=== PATIENT | female | born 1985 | race Caucasian/White ===

== ENCOUNTER → 2016-09-06 | Outpatient (CLI) | payer OTHER ==
[2016-09-06 18:13] LABS: BASO # 0.1 K/mm3 (0.0-0.2); BASO % 1.8 % (0.0-1.0); EOS % 0.7 % (0.0-3.0); LARGE UNSTAINED CELL # 0.1 K/mm3 (0.0-0.4); LARGE UNSTAINED CELL % 1.9 % (0.0-4.0); LYMPH # 1.8 K/mm3 (1.5-4.5); MEAN CORPUSCULAR HEMOGLOBIN 30.7 pg (27.0-33.0); MEAN CORPUSCULAR VOLUME 90.4 fl (80.0-96.0); MONO # 0.3 K/mm3 (0.0-0.8); MONO % 4.1 % (0.0-5.0); NEUTROPHILS # 4.3 K/mm3 (1.8-7.7); NEUTROPHILS % 65.5 % (36.0-66.0); PLATELET COUNT, AUTOMATED 288 k/mm3 (150-450); RED CELL DISTRIBUTION WIDTH 12.5 % (11.5-14.5)
[2016-09-07 09:36] LABS: HBsAg Prenatal NEGATIVE (NEGATIVE)
[2016-09-07 11:53] LABS: WHITE BLOOD COUNT 6.6 K/mm3 (4.0-10.0)
[2016-09-07 14:16] LABS: HIV SCRN NEGATIVE (NEGATIVE); HIV SCRN1 NEGATIVE (NEGATIVE)
[2016-09-07 14:18] LABS: CONTROL LINE INT CTR LINE PRESENT
== END ==
LOC: M LRY 09:56
PROVIDERS: ATTEND Advanced Practice Midwife
DX: Z34.81 Encounter for supervision of other normal pregnancy, first trimester (principal)

== ENCOUNTER → 2016-11-10 | Outpatient (CLI) | payer OTHER | LOC: M LRY 09:45 | PROVIDERS: ATTEND Specialist | DX: Z34.80 Encounter for supervision of other normal pregnancy, unspecified trimester (principal) ==

== ENCOUNTER → 2016-11-22 | Outpatient (CLI) | payer OTHER ==
--- NOTE | 2016-11-22 14:29 | REP ---
Clinical: Anatomical evaluation. Comparison: None . Findings: Examination demonstrates a single live intrauterine in variable presentation. motion is identified by technologist. Placenta is noted right-sided towards the fundus and grade zero without evidence for placenta previa or abruption. Amniotic fluid volume is normal. Cervix measures 4.4 cm in length and appears closed. No evidence for nuchal cord. Gestational age by current measurements 19 weeks 1 day with SYDNIE 04/17/2017 . FHR equals 139 beats per minute. BPD 4.5 cm 19 weeks 4 days HC 16.6 cm 19 weeks 2 days AC 14.0 cm 19 weeks 2 days FL 3.0 cm 19 weeks 2 days HL 2.9 cm 19 weeks 3 days HC/AC ratio 1.19 Estimated weight 287 grams ( 51st percentile). Anatomical assessment demonstrates normal structures including cranium, choroid plexus, cavum, cerebellum/posterior fossa, facial features, lungs, four-chamber heart/ventricular outflow tracts, diaphragm, stomach, cord insertion/three-vessel cord, bladder, spine, and extremities. Bilateral renal pelviectasis measuring up to 5.6 mm. Impression: Single live intrauterine in variable presentation. Bilateral renal pelviectasis noted. Remainder of the anatomical assessment is complete and normal. Signed by Fritz Martini MD 11/22/2016 02:20 P
== END ==
LOC: M SMT 12:41
PROVIDERS: ATTEND Specialist
DX: Z34.82 Encounter for supervision of other normal pregnancy, second trimester (principal)

== ENCOUNTER → 2017-01-05 | Outpatient (CLI) | payer OTHER ==
[2017-01-05 13:44] LABS: MEAN CORPUSCULAR HEMOGLOBIN 32.2 pg (27.0-33.0); MEAN CORPUSCULAR HGB CONC 34.8 g/dl (32.0-36.5); MEAN CORPUSCULAR VOLUME 92.5 fl (80.0-96.0); RED CELL DISTRIBUTION WIDTH 13.3 % (11.5-14.5); WHITE BLOOD COUNT 7.4 K/mm3 (4.0-10.0)
== END ==
LOC: M SMT 09:06
PROVIDERS: ATTEND Advanced Practice Midwife
DX: Z34.82 Encounter for supervision of other normal pregnancy, second trimester (principal)

== ENCOUNTER → 2017-03-17 | Outpatient (REF) | payer OTHER ==
[~2017-03-17] MED LIST: COLA100C5 PO; IBUP-1022 PO; IBUP-1114 PO; OXYC1TAB23 PO; PRE-TAB3 PO
== END ==
LOC: M LAB REF 12:46
PROVIDERS: ATTEND Advanced Practice Midwife
DX: Z34.83 Encounter for supervision of other normal pregnancy, third trimester (principal)

== ENCOUNTER 2017-03-23 14:34 | Outpatient (CLI) | payer OTHER ==
[~2017-03-23] VITALS: Ht 162.6 cm; Wt 70.0 kg
[2017-03-23] MEDS ORDERED: PRE-TAB3 PO (14:45)
[2017-03-23 14:50] VITALS: BP 118/63
[2017-03-23 15:07] VITALS: BP 113/61
[2017-03-23] MEDS ORDERED: TERBUTALINE SULFATE 1 MG/ML VIAL (J3105) SC ONE (18:45)
== END 2017-03-23 23:45 | disposition home or self-care (01) ==
LOC: M LDO 14:34
PROVIDERS: ATTEND Obstetrics & Gynecology
DX: O32.1XX0 Maternal care for breech presentation, not applicable or unspecified (principal); Z3A.37 37 weeks gestation of pregnancy

== ENCOUNTER 2017-04-05 05:27 | Inpatient (IN) | payer OTHER ==
[~2017-04-05] VITALS: Ht 162.6 cm; Wt 70.0 kg
[2017-04-05] VITALS (9 sets, daily range): BP systolic 103–120; BP diastolic 53–102
[~2017-04-05 05:27] MED LIST changes: -COLA100C5 PO; -IBUP-1022 PO; -IBUP-1114 PO; -OXYC1TAB23 PO
[2017-04-05] MEDS ORDERED: BICITRA 30ML SOLN UDC PO ONE (05:45)
[2017-04-05] MEDS ORDERED: LR 1,000 ML IV SCH ×3 (05:45→09:30)
[2017-04-05] MEDS ORDERED: LR 1,000 ML IV ONE (05:45)
[2017-04-05 06:26] LABS: MEAN CORPUSCULAR HEMOGLOBIN 32.7 pg (27.0-33.0); MEAN CORPUSCULAR VOLUME 90.8 fl (80.0-96.0); RED CELL DISTRIBUTION WIDTH 13.3 % (11.5-14.5); WHITE BLOOD COUNT 6.7 K/mm3 (4.0-10.0)
[2017-04-05] MEDS ORDERED: NALBUPHINE HCL 10 MG/ML AMP (J2300) IV PRN ×2 (07:57→09:30)
[2017-04-05] MEDS ORDERED: METOCLOPRAMIDE INJ 10MG/2ML VIAL (J2765) IV PRN (07:57)
[2017-04-05] MEDS ORDERED: ONDANSETRON 4MG/2ML VIAL (J2405) IV PRN ×3 (07:57→09:30)
[2017-04-05] MEDS ORDERED: NALOXONE INJ 0.4 MG/1 ML VIAL (J2310) IV PRN ×2 (07:57)
[2017-04-05] MEDS ORDERED: KETOROLAC 60 MG/2 ML VIAL (J1885) As Ordered ONE (08:18)
[2017-04-05] MEDS ORDERED: PHENYLephrine HCL 500 MCG/5 ML (100MCG/ML) SYRINGE (J2370) As Ordered ONE (08:18)
[2017-04-05] MEDS ORDERED: MORPHINE PRES-FREE INJ 10 MG/10 ML VIAL (J2274) As Ordered ONE (08:18)
[2017-04-05] MEDS ORDERED: OXYTOCIN INJ 10 UNITS/ML VIAL (J2590) As Ordered ONE (08:18)
[2017-04-05] MEDS ORDERED: ONDANSETRON 4MG/2ML VIAL (J2405) As Ordered ONE (08:18)
[2017-04-05] MEDS ORDERED: fentaNYL 100 MCG/2 ML INJECTION (J3010) As Ordered ONE (08:22)
[2017-04-05] MEDS ORDERED: MEASLES,MUMPS,RUBELLA VACCINE INJ (MMR-II) (90707) SC SCH (08:45)
[2017-04-05] MEDS ORDERED: RHOGAM 300 MCG (1500 IU) INJ (J2790) IM SCH (08:45)
[2017-04-05] MEDS ORDERED: OXYTOCIN DRIP 30 UNITS in APPROPRIATE DILUENT 1 EA IV ONE (08:45)
[2017-04-05] MEDS ORDERED: PERCOCET 5MG/325MG TAB PO PRN ×2 (08:45)
[2017-04-05] MEDS ORDERED: MOM 30ML SUSPENSION UDC PO PRN (08:45)
[2017-04-05] MEDS ORDERED: DOCUSATE SODIUM 100 MG CAP PO PRN (08:45)
[2017-04-05] MEDS ORDERED: OXYTOCIN DRIP 30 UNITS in APPROPRIATE DILUENT 1 EA IV SCH (09:04)
[2017-04-05] MEDS ORDERED: fentaNYL 100 MCG/2 ML INJECTION (J3010) IV PRN (09:30)
--- NOTE | 2017-04-05 09:37 | HPE ---
DATE OF ADMISSION: 04/05/2017 CHIEF COMPLAINT: Primary low transverse section. HISTORY OF PRESENT ILLNESS: The patient is a 32-year-old, (G) 2, para (P) 1-0-0-1, at 39 weeks and 0 days gestation with an estimated date of confinement of 04/12/2017 by last menstrual period of 07/06/2016. She presents for primary low transverse section secondary to breech presentation of fetus. She denies any rupture of membranes, bleeding or discharge. She feels the baby move. LABS: Blood type is O positive. She is GBS positive. Rubella immune. HIV negative. Last Pap smear was 02/11/2016 and normal. She is gonorrhea and Chlamydia negative. Hepatitis B antigen negative. Hepatitis C nonreactive. VDRL nonreactive. Afp4 negative. Diabetes screen was 60. Her blood pressures in the office have been ranging from 110 to 132 systolic over 60 to 72 diastolic. Total weight gain is 32 pounds. OB ULTRASOUND: Bedside ultrasound confirms adia breech presentation. PAST OB HISTORY: In 2012, she delivered a male at 40 weeks 5 days gestation, normal spontaneous vaginal delivery, weighing 7 pounds 14 ounces. PAST MEDICAL HISTORY: She has factor V Leiden. PAST SURGICAL HISTORY: None. ALLERGIES: None. SOCIAL HISTORY: She is . Denies tobacco, alcohol and drug use. PHYSICAL EXAMINATION: Temperature 97.8. Pulse 88. Respiratory rate 18. Blood pressure 115/70. Abdomen: Gravid. Nontender. Monitor: heart rate is in the 130s with moderate variability. Accelerations. No decelerations. Category 1 tracing. ASSESSMENT AND PLAN: Intrauterine (IUP) at 39 weeks 0 days gestation presenting for primary low transverse section secondary to breech presentation of fetus. Anticipate primary low transverse section. My preceptor for this patient encounter was Dr. Estevan Alexis. The preceptor was physically present in the building during the encounter and was fully available. As needed, all aspects of the patient interview, examination, medical decision making process, and medical care plan development were reviewed and approved by the preceptor. The preceptor is aware and concurs with the plan as stated in the body of this note and will attest to such by his/her cosignature.
[2017-04-05] MEDS: PRENATAL VITAMINS CHEWABLE TABLET PO SCH (11:58)
[2017-04-05] MEDS: KETOROLAC 30 MG/ML VIAL (J1885) IV SCH ×2 (14:36→20:31)
[2017-04-06] MEDS: KETOROLAC 30 MG/ML VIAL (J1885) IV SCH ×2 (01:58→07:59)
[2017-04-06 02:00] VITALS: BP 104/66
[2017-04-06 05:52] VITALS: BP 103/63
[2017-04-06 07:01] LABS: MEAN CORPUSCULAR HEMOGLOBIN 31.9 pg (27.0-33.0); MEAN CORPUSCULAR HGB CONC 35.4 g/dl (32.0-36.5); RED CELL DISTRIBUTION WIDTH 13.8 % (11.5-14.5); WHITE BLOOD COUNT 7.2 K/mm3 (4.0-10.0)
[2017-04-06] MEDS: PRENATAL VITAMINS CHEWABLE TABLET PO SCH (07:59)
[2017-04-06 10:15] VITALS: BP 116/65
[2017-04-06 15:22] VITALS: BP 110/56
[2017-04-06] MEDS: IBUPROFEN 800 MG TAB PO SCH (15:24)
[2017-04-07] MEDS: IBUPROFEN 800 MG TAB PO SCH ×2 (00:54→08:39)
[2017-04-07 06:00] VITALS: BP 125/58
[2017-04-07] MEDS ORDERED: OXYC1TAB23 PO ×2 (07:42→13:15)
[2017-04-07] MEDS ORDERED: COLA100C5 PO (07:43)
[2017-04-07] MEDS ORDERED: IBUP-1022 PO (07:43)
[2017-04-07] MEDS: PRENATAL VITAMINS CHEWABLE TABLET PO SCH (08:38)
[2017-04-07] MEDS ORDERED: IBUP-1114 PO (13:15)
--- NOTE | 2017-04-08 13:41 | DSES ---
DATE OF ADMISSION: 04/05/2017 DATE OF DISCHARGE: 04/07/2017 HISTORY: A 32-year-old G2, P1 female, 39 weeks gestation, presents for primary section due to breech presentation. Medical history is significant for factor V Leiden deficiency. HOSPITAL COURSE: On 02/03/2017 the patient underwent primary low transverse section without complication. She had adequate return of bladder and bowel function. Her postoperative hemoglobin was 8.8 grams/deciliter. She was deemed stable for discharge on postoperative day #2. ADMISSION DIAGNOSIS: , term, breech presentation. DISCHARGE DIAGNOSIS: , term, breech presentation. PROCEDURES: Primary transverse section, bilateral tubal ligation. Instructions were reviewed. Patient will followup in the office in 2 weeks.
== END 2017-04-07 15:25 | disposition home or self-care (01) | DRG 540 ==
LOC: M LDI 05:27 → M OBS 10:48
PROVIDERS: ADMIT Obstetrics & Gynecology; ATTEND Obstetrics & Gynecology
PROC: 10D00Z1 Extraction of Products of Conception, Low, Open Approach (ICD-10-PCS; principal; 2017-04-05 07:30)
DX: O32.1XX0 Maternal care for breech presentation, not applicable or unspecified (principal); Z37.0 Single live birth; Z3A.39 39 weeks gestation of pregnancy

== ENCOUNTER → 2017-11-03 | Outpatient (REF) | payer OTHER ==
[2017-11-08 00:06] LABS: HPV HYBRID CAPTURE II Negative (Negative)
== END ==
LOC: M LAB REF 13:37
DX: Z01.419 Encounter for gynecological examination (general) (routine) without abnormal findings (principal); Z11.51 Encounter for screening for human papillomavirus (HPV)
CPT/HCPCS: G0123

== ENCOUNTER → 2018-12-18 | Outpatient (REF) | payer OTHER ==
[~2018-12-18] MED LIST changes: +COLA100C5 PO; +IBUP-1022 PO; +IBUP-1114 PO; +OXYC1TAB23 PO
== END ==
LOC: M LAB REF 17:52
PROVIDERS: ATTEND Advanced Practice Midwife
DX: Z12.4 Encounter for screening for malignant neoplasm of cervix (principal)

== ENCOUNTER → 2020-11-30 | Outpatient (REF) | payer OTHER | LOC: M SFHCWAGY 09:42 | PROVIDERS: ATTEND Advanced Practice Midwife | DX: Z12.4 Encounter for screening for malignant neoplasm of cervix (principal); R87.610 Atypical squamous cells of undetermined significance on cytologic smear of cervix (ASC-US); Z80.3 Family history of malignant neoplasm of breast ==

== ENCOUNTER → 2021-01-01 | Outpatient (CLI) | payer OTHER ==
--- NOTE | 2021-01-04 08:59 | REP ---
INDICATION: Z13.31 HIGH RISK PATIENT BREAST CA,FM HX BREAST CA. COMPARISON: There are no prior bilateral screening examinations for comparison. The latest prior bilateral examination for comparison is a bilateral diagnostic mammogram with no FFDM images for comparison. TECHNIQUE: Digital screening mammography was carried out bilaterally in the CC and MLO projections using both 2D and 3D modalities. By history the patient has no complaints of a palpable breast abnormality or other significant breast complaints. FINDINGS: The breasts are unchanged in size and shape. Once again, dense heterogenous fibroglandular elements are seen bilaterally to such a degree that the sensitivity of the mammogram and detecting cancers decreased. There are no masses. There is no internal architectural distortion. Benign calcifications are seen on the right. In the left breast retroareolar region there is a grouping of calcifications which vary somewhat in size, shape, and radiographic density. No other suspicious features are seen in either breast. The Volpara volumetric breast density pattern is D. IMPRESSION: BIRADS/ACR category 0. Left breast calcifications as described above for which diagnostic digital magnified spot compression views are recommended in the CC and MLO projections. This patient's Tyrer-Cuzick lifetime breast cancer risk assessment score is 30.4 %. This mammogram was interpreted with the aid of an FDA-approved computer-aided detection system. The patient states she had a clinical breast exam in November 2020. The patient letter being requested is M0. RECOMMENDATION: As above <Electronically signed by Ben Lew > 01/04/21 0827
== END ==
LOC: M WHC 12:48
PROVIDERS: ATTEND Advanced Practice Midwife
DX: Z12.31 Encounter for screening mammogram for malignant neoplasm of breast (principal); Z80.3 Family history of malignant neoplasm of breast; R92.1 Mammographic calcification found on diagnostic imaging of breast

== ENCOUNTER → 2021-01-15 | Outpatient (CLI) | payer OTHER ==
--- NOTE | 2021-01-15 15:58 | REP ---
INDICATION: LEFT BREAST CALCS. COMPARISON: Multiple the latest screening examination of 01/01/2021 TECHNIQUE: Diagnostic digital magnified spot compression views of the left breast were obtained over the region of interest seen on the prior screening exam 01/01/2021. Cc and MLO views were obtained FINDINGS: The retro areolar cluster of calcifications seen on the screening exam are now seen to vary in size, shape, and radiographic density. Other calcifications are also seen, however, those calcifications are punctate and are more spread out well these suspicious calcifications are clustered within 1 sq cm breast tissue. These calcifications were not imaged on any prior mammogram I have the review. IMPRESSION: BIRADS/ACR category 4 left mammogram. Biopsy of the aforementioned calcifications recommended. The patient letter being requested is M4. RECOMMENDATION: As above <Electronically signed by Ben Lew > 01/15/21 0912
== END ==
LOC: M WHC 15:05
PROVIDERS: ATTEND Advanced Practice Midwife
DX: Z12.31 Encounter for screening mammogram for malignant neoplasm of breast (principal); Z80.3 Family history of malignant neoplasm of breast; R92.1 Mammographic calcification found on diagnostic imaging of breast

== ENCOUNTER → 2021-02-04 | Outpatient (CLI) | payer OTHER ==
[2021-02-04 15:37] VITALS: BP 116/78
--- NOTE | 2021-02-04 15:55 | REP ---
INDICATION: R92.8 ABN MAMMO LT BREAST,STEREOTACTIC BIOPSY. COMPARISON: 01/15/2021. TECHNIQUE: Specimen radiograph is performed. FINDINGS: Multiple tiny calcifications are seen in the specimens. IMPRESSION: Multiple tiny calcifications are visualized in the obtained biopsy specimens. RECOMMENDATION: Clinical follow-up. <Electronically signed by Ivan Etienne > 02/04/21 155
--- NOTE | 2021-02-04 16:22 | REP ---
INDICATION: R92.8 ABN MAMMO LT BREAST,POST STEREOTACTIC BIOPSY. COMPARISON: 01/15/2021. TECHNIQUE: ML and CC views left breast performed following stereotactic biopsy of retroareolar microcalcifications. FINDINGS: Many of the calcifications are no longer present. Biopsy marking clip is present, but appears to have migrated approximately 1.7 cm posteromedial to the location of the calcifications. There are few residual calcifications present at the site of the biopsied cluster. IMPRESSION: Successful stereotactic biopsy of clustered microcalcifications in the left retroareolar region. Biopsy clip appears to have migrated approximately 1.7 cm posteromedial to the biopsied cluster of microcalcifications. RECOMMENDATION: Clinical follow-up. <Electronically signed by Ivan Etienne > 02/04/21 0464
--- NOTE | 2021-02-04 17:04 | REP ---
INDICATION: R92.8 ABN MAMMO LT BREAST,STEREOTACTIC BIOPSY. COMPARISON: None. TECHNIQUE: This procedure is performed by Madeleine Gonzalez [facility], under the direct supervision of Dr. Etienne. The risks and benefits of the procedure were explained to the patient and informed consent was obtained both verbally and written. Directly prior to the start of the procedure, a formal timeout was done in the procedure room. The lateral medial approach was utilized on the prone table. The left breast microcalcification's were localized using mammographic guidance. The skin was prepped and draped in a sterile fashion. Two ml of buffered lidocaine was used as a local anesthetic. FINDINGS: A 12 gauge vacuum assisted mammotome biopsy device was inserted and advanced into the breast lesion and 6 core biopsy samples were obtained. A marker clip was placed at the biopsy site. The patient tolerated the procedure well and there were no immediate complications. After the appropriate amount of monitored convalescence the patient was discharged from the department. IMPRESSION: Stereotactic guided left breast biopsy with micro clip placement. <Electronically signed by Madeleine Gonzalez > 02/04/21 1633 <Electronically signed by Ivan Eitenne > 02/04/21 1700
== END ==
LOC: M WHCPRO 06:55
PROVIDERS: ATTEND Surgery
DX: N60.12 Diffuse cystic mastopathy of left breast (principal); N60.92 Unspecified benign mammary dysplasia of left breast

== ENCOUNTER → 2021-06-25 | Outpatient (CLI) | payer OTHER ==
[~2021-06-25] MED LIST changes: +PROHANCE 279.3MG/ML 15ML VIAL As Ordered ONE
--- NOTE | 2021-06-25 14:40 | REP ---
INDICATION: HIGH RISK BREAT CA, ABN MAMMO. COMPARISON: Mammogram 01/01/2021, MRI 09/11/2018. TECHNIQUE: Three Alessandra MRI imaging was performed with a dedicated breast coil. Axial, coronal, and sagittal T1 and T2 weighted scans were obtained with and without fat saturation in the usual fashion. The study includes dynamically acquired post gadolinium-enhanced imaging with image subtraction. Maximum intensity projection and multi planar reformation imaging is included as well. This study is interpreted with the aid of [employer] an FDA approved computer aided detection (CAD) software program, on a dedicated breast MRI workstation. The gadolinium enhancement dose is 11 mL of intravenous ProHance. FINDINGS: There is an extreme pattern of parenchymal tissue bilaterally. No axillary adenopathy is seen. A Hydro[employer] clip is seen at 12 o'clock left breast. No significant cystic change is seen in either breast. There is moderate background parenchymal enhancement bilaterally. There is no suspicious enhancing mass or morphologic abnormality. IMPRESSION: BI-RADS category 2 benign breast MRI. No suspicious enhancing mass or morphologic abnormality. Yearly supplemental screening MRI of the breasts is recommended for patients with an elevated lifetime risk of breast cancer of 20% or greater, in addition to annual screening mammography, staggered every 6 months. <Electronically signed by Ivan Etienne > 06/25/21 [id number]
== END ==
LOC: M RAD 12:38
PROVIDERS: ATTEND Surgery
DX: Z91.89 Other specified personal risk factors, not elsewhere classified (principal)
CPT/HCPCS: 77049; A9576

== ENCOUNTER → 2021-08-09 | Outpatient (CLI) | payer OTHER ==
[~2021-08-09] MED LIST changes: -PROHANCE 279.3MG/ML 15ML VIAL As Ordered ONE
--- NOTE | 2021-08-09 09:41 | REP ---
INDICATION: R92.8 ABN LEFT MAMMO/6 MO POST BX. COMPARISON: Bilateral screening mammogram, 01/01/2021, post biopsy images of the left breast, 02/04/2021. TECHNIQUE: 2D and 3D craniocaudal and oblique images were obtained of the left breast. FINDINGS: Biopsy clip is noted in the retroareolar area of the left breast. It is again noted that the biopsy clip has migrated posteromedial to the biopsied group of calcifications. The Volpara volumetric breast density pattern is C, the breasts are heterogeneously dense, which may obscure small masses. There are no suspicious calcifications, suspicious masses or areas of architectural distortion in the left breast. IMPRESSION: BIRADS/ACR : Category 2: Benign finding. This patient's Tyrer-Cuzick lifetime breast cancer risk assessment score is 30.3%. Because the patient's Micky [place] score is greater than 20%, screening MRI or whole breast ultrasound is warranted. This mammogram was interpreted with the aid of an FDA-approved computer-aided detection system. The patient states she had a clinical breast exam in February 2022. The patient letter being requested is M2. RECOMMENDATION: Repeat screening mammography recommended 1 year (for women over 40). <Electronically signed by Maurilio Qureshi > 08/09/21 0938
== END ==
LOC: M WHC 08:33
PROVIDERS: ATTEND Surgery
DX: R92.8 Other abnormal and inconclusive findings on diagnostic imaging of breast (principal)
CPT/HCPCS: 77065; G0279

== ENCOUNTER → 2022-01-28 | Outpatient (REF) | payer OTHER | LOC: M LAB REF 09:10 | PROVIDERS: ATTEND Otolaryngology | DX: K14.8 Other diseases of tongue (principal) ==

== ENCOUNTER → 2022-02-21 | Outpatient (CLI) | payer OTHER | LOC: M WHC 08:29 | PROVIDERS: ATTEND Nurse Practitioner Women's Health | DX: Z12.31 Encounter for screening mammogram for malignant neoplasm of breast (principal); Z80.3 Family history of malignant neoplasm of breast; Z80.0 Family history of malignant neoplasm of digestive organs; Z91.89 Other specified personal risk factors, not elsewhere classified ==

== ENCOUNTER → 2022-07-04 | Outpatient (CLI) | payer OTHER ==
[~2022-07-04] MED LIST changes: +PROHANCE 279.3MG/ML 15ML VIAL ONE
== END ==
LOC: M PLAIMG 13:23
PROVIDERS: ATTEND Nurse Practitioner Women's Health
DX: R92.2 Inconclusive mammogram (principal); Z91.89 Other specified personal risk factors, not elsewhere classified; Z80.3 Family history of malignant neoplasm of breast
CPT/HCPCS: 77049; A9576

== ENCOUNTER 2023-01-18 07:24 | Day surgery (SDC) | payer OTHER ==
[~2023-01-18] VITALS: Ht 162.6 cm; Wt 58.3 kg
[~2023-01-18 07:24] MED LIST changes: +MAGN400C PO; -PROHANCE 279.3MG/ML 15ML VIAL ONE
[2023-01-18 07:51] LABS: HEMATOCRIT 38.7 % (36.0-47.0); HEMOGLOBIN 12.8 g/dl (12.0-15.5); MEAN CORPUSCULAR HEMOGLOBIN 29.2 pg (27.0-33.0); MEAN CORPUSCULAR HGB CONC 33.1 g/dl (32.0-36.5); MEAN CORPUSCULAR VOLUME 88.2 fl (80.0-96.0); PLATELET COUNT, AUTOMATED 298 10^3/uL (150-450); RED BLOOD COUNT 4.39 10^6/uL (4.00-5.40); WHITE BLOOD COUNT 8.5 10^3/uL (4.0-10.0)
[2023-01-18] MEDS ORDERED: LR 1,000 ML IV SCH ×2 (08:25→11:05)
[2023-01-18] MEDS ORDERED: LIDOCAINE 2% 100MG/5ML SDV (FOR ANES.) As Ordered ONE (08:34)
[2023-01-18] MEDS ORDERED: fentaNYL 250 MCG/5 ML INJECTION As Ordered ONE (08:34)
[2023-01-18] MEDS ORDERED: ROCURONIUM BROMIDE 50MG/5ML VIAL As Ordered ONE (08:34)
[2023-01-18] MEDS ORDERED: KETOROLAC 60MG 2ML VIAL As Ordered ONE (08:34)
[2023-01-18] MEDS ORDERED: ONDANSETRON 4MG 2ML VIAL As Ordered ONE (08:34)
[2023-01-18] MEDS ORDERED: propofoL 200 MG/20 ML VIAL As Ordered ONE (08:34)
[2023-01-18] MEDS ORDERED: MIDAZOLAM INJ 2MG/2ML VIAL As Ordered ONE (08:34)
[2023-01-18] MEDS ORDERED: BUPIVACAINE HCL 0.25% 10ML VIAL As Ordered ONE (09:18)
[2023-01-18] MEDS ORDERED: SUGAMMADEX SODIUM 500 MG/5 ML VIAL (BRIDION) As Ordered ONE (09:58)
[2023-01-18] MEDS ORDERED: ACETAMINOPHEN 1000MG 100ML IV BAG As Ordered ONE (09:58)
[2023-01-18] MEDS ORDERED: HYDROmorphone HCL 2MG/ML 1ML VIAL As Ordered ONE (09:59)
[2023-01-18] MEDS ORDERED: ePHEDrine SULFATE 25 MG/5 ML(5MG/ML) SYRINGE As Ordered ONE ×2 (10:07→10:27)
[2023-01-18] MEDS ORDERED: PHENYLephrine 500MCG 5ML (100MCG/ML) SYRINGE As Ordered ONE (10:07)
[2023-01-18] MEDS ORDERED: fentaNYL 100 MCG/2 ML INJECTION IV PRN (11:05)
[2023-01-18] MEDS ORDERED: oxyCODONE 5MG TAB PO PRN (11:05)
[2023-01-18] MEDS ORDERED: HYDROMORPHONE HCL 0.5 MG/ 0.5 ML SYRINGE IV PRN (11:05)
[2023-01-18] MEDS ORDERED: ONDANSETRON 4MG 2ML VIAL IV PRN ×2 (11:05→11:20)
[2023-01-18] MEDS ORDERED: NALOXONE INJ 0.4MG/1ML VIAL As Ordered ONE (11:09)
[2023-01-18] MEDS ORDERED: ACETAMINOPHEN 500 MG TAB PO PRN (11:20)
[2023-01-18 11:50] VITALS: BP 111/60
== END 2023-01-18 12:00 | disposition home or self-care (01) ==
LOC: M SDC 07:24
PROVIDERS: ATTEND Obstetrics & Gynecology
DX: Z30.2 Encounter for sterilization (principal); D68.2 Hereditary deficiency of other clotting factors; Z79.899 Other long term (current) drug therapy
CPT/HCPCS: 36415; 58661; 81025; 85027; 86850; 86900; 86901; 88302; J0131; J1100; J1170; J1885; J2250; J2310; J2370; J2405; J3010

== ENCOUNTER → 2023-02-22 | Outpatient (CLI) | payer OTHER | LOC: M WHC 15:54 | PROVIDERS: ATTEND Nurse Practitioner Women's Health | DX: Z12.31 Encounter for screening mammogram for malignant neoplasm of breast (principal) ==

== ENCOUNTER → 2024-02-26 | Outpatient (CLI) | payer BC | LOC: M WHC 08:00 | PROVIDERS: ATTEND Nurse Practitioner Women's Health | DX: Z12.31 Encounter for screening mammogram for malignant neoplasm of breast (principal); Z80.3 Family history of malignant neoplasm of breast; Z91.89 Other specified personal risk factors, not elsewhere classified; R92.343 Mammographic extreme density, bilateral breasts; R92.8 Other abnormal and inconclusive findings on diagnostic imaging of breast ==

== ENCOUNTER → 2024-03-20 | Outpatient (CLI) | payer BC | LOC: M WHC 13:01 | PROVIDERS: ATTEND Nurse Practitioner Women's Health | DX: R92.2 Inconclusive mammogram (principal); Z80.3 Family history of malignant neoplasm of breast; R92.342 Mammographic extreme density, left breast; N60.12 Diffuse cystic mastopathy of left breast ==

== ENCOUNTER → 2024-03-26 | Outpatient (REF) | payer BC ==
[2024-03-28 14:47] LABS: HPV APTIMA Not Detected (Not Detected)
== END ==
LOC: M SFHCWAGY 17:37
PROVIDERS: ATTEND Nurse Practitioner Family
DX: Z12.4 Encounter for screening for malignant neoplasm of cervix (principal)

== ENCOUNTER → 2024-10-10 | Outpatient (CLI) | payer BC | LOC: M WHC 07:04 | PROVIDERS: ATTEND Nurse Practitioner Family | DX: R92.8 Other abnormal and inconclusive findings on diagnostic imaging of breast (principal) ==

== ENCOUNTER → 2024-10-24 | Outpatient (CLI) | payer BC ==
[2024-10-24 07:32] VITALS: TEMP 98.8
[2024-10-24 08:55] VITALS: BP 118/72; O2SAT 100
== END ==
LOC: M WHCPRO 07:25
PROVIDERS: ATTEND Obstetrics & Gynecology
DX: R92.8 Other abnormal and inconclusive findings on diagnostic imaging of breast (principal); N63.32 Unspecified lump in axillary tail of the left breast